=== PATIENT | female | born 1990 | race Hispanic/Latino ===

== ENCOUNTER 2024-03-29 11:53 | Emergency (ER) | payer SELFPAY ==
[2024-03-29] MEDS ORDERED: LORAZEPAM 1 MG TABLET ONE (13:04)
--- NOTE | 2024-03-29 13:11 | RAD REPORT ---
EXAM: Chest Single View HISTORY: CHEST PAIN COMPARISON: None. FINDINGS: LUNGS/PLEURA: The lungs are clear. No pleural effusions or pneumothorax. No pulmonary edema. MEDIASTINUM: The mediastinal silhouette is within normal limits. CARDIAC: The cardiac silhouette is within normal limits. UPPER ABDOMEN: No significant abnormality. BONES: No acute abnormality. LINES/TUBES/OTHER: N/A IMPRESSION: No evidence of acute cardiopulmonary disease.
[2024-03-29 13:24] LABS: Absolute Eosinophils 0.1 K/uL (0-0.5); Absolute Lymphocytes (CBC) 2.5 K/uL (0.7-4.9); Absolute Monocytes 0.3 K/uL (0.1-1.3); Absolute Neutrophil 4.9 K/uL (1.8-8.0); Basophils % 0.5 % (0-1.3); Eosinophils % 1.4 % (0-4.4); Hematocrit 37.1 % (36.0-45.0); Hemoglobin 13.2 g/dL (12.0-15.0); Lymphocytes % 31.9 % (15.3-44.8); MCH 32.2 pg (27.0-35.0); MCHC 35.5 g/dL (32.0-36.0); MCV 90.6 fL (80-100); MPV 8.7 fL (7.6-11.3); Monocytes % 4.4 % (3.3-12.3); Neutrophils % 61.8 % (41.7-73.7); Nucleated Red Blood Cells % 0.1 % (0-0); Platelets 297 thou/uL (152-406); RBC Red Blood Cell Count 4.09 M/uL (3.86-4.86); Red Cell Distribution Width 12.6 % (12.1-15.2)
[2024-03-29 13:42] LABS: Anion Gap 7.9 mEq/L (5.0-15.0); Potassium 3.9 mEq/L (3.5-5.1); Troponin High Sensitivity 6.8 pg/mL (<58.9)
--- NOTE | 2024-03-29 13:50 | ER ---
Nurse's Notes [facility] Name: Inessa Gilmore Age: 34 yrs Sex: Female : 1990 Arrival Date: 03/29/2024 Time: 11:53 Bed 2 Private MD: Diagnosis: Anxiety disorder, unspecified;Chest pain, unspecified Presentation: 03/29 12:31 Chief complaint: Intermittent sharp left sided chest pain, SOB, and anxiety x 2 days. hb Coronavirus screen: At this time, the client does not indicate any symptoms associated with coronavirus-19. Ebola Screen: No symptoms or risks identified at this time. Initial Sepsis Screen: Does the patient meet any 2 criteria? No. Patient's initial sepsis screen is negative. Does the patient have a suspected source of infection? No. Patient's initial sepsis screen is negative. Risk Assessment: Do you want to hurt yourself or someone else? Patient reports no desire to harm self or others. Onset of symptoms was March 28, 2024. 12:31 Method Of Arrival: Ambulatory hb 12:31 Acuity: HECTOR 3 hb Historical: - Allergies: 12:32 No Known Allergies; hb - Home Meds: 12:32 None [Active]; hb - PMHx: 12:32 None; hb - PSHx: 12:32 Appendectomy; section; hb - Immunization history:: Adult Immunizations up to date. - Infectious Disease History:: Denies. - Social history:: Smoking status: Reported history of juuling and/or vaping. Screenin:14 [facility] ED Fall Risk Assessment (Adult) History of falling in the last 3 months, db including since admission No falls in past 3 months (0 pts) Confusion or Disorientation No (0 pts) Intoxicated or Sedated No (0 pts) Impaired Gait No (0 pts) Mobility Assist Device Used No (0 pt) Altered Elimination No (0 pt) Score/Fall Risk Level 0 - 2 = Low Risk Oriented to surroundings, Maintained a safe environment. Abuse screen: Denies threats or abuse. Denies injuries from another. Abuse screen: Denies threats or abuse. Nutritional screening: No deficits noted. Tuberculosis screening: No symptoms or risk factors identified. Assessment: 13:15 Reassessment: Patient appears in no apparent distress at this time. Patient and/or db family updated on plan of care and expected duration. Pain level reassessed. Patient is alert, oriented x 3, equal unlabored respirations, skin warm/dry/pink. General: Appears in no apparent distress. comfortable, Behavior is calm, cooperative. Pain: Complains of pain in chest Pain does not radiate. Pain began gradually. Pain: Pain began 1 day ago. Neuro: Level of Consciousness is awake, alert, obeys commands, Oriented to person, place, time, situation. Cardiovascular: Reports chest pain. Respiratory: Airway is patent Respiratory effort is even, unlabored, Respiratory pattern is regular, symmetrical. 13:37 Reassessment: Patient appears in no apparent distress at this time. Patient and/or db family updated on plan of care and expected duration. Pain level reassessed. Patient is alert, oriented x 3, equal unlabored respirations, skin warm/dry/pink. 14:06 Reassessment: Patient appears in no apparent distress at this time. Patient and/or db family updated on plan of care and expected duration. Pain level reassessed. Patient is alert, oriented x 3, equal unlabored respirations, skin warm/dry/pink. Vital Signs: 12:31 BP 112 / 76; Pulse 86; Resp 16; Temp 97.8; Pulse Ox 100% ; Weight 58.97 kg; Height 5 hb ft. 1 in. ; Pain 0/10; 13:15 BP 100 / 65; Pulse 72; Resp 18; Pulse Ox 99% on R/A; db 13:45 BP 101 / 71; Pulse 72; Resp 16; Pulse Ox 99% ; db 12:31 Body Mass Index 24.56 (58.97 kg, 154.94 cm) hb 12:31 Pain Scale: Adult hb ED Course: 11:55 Patient arrived in ED. mr 12:32 Triage completed. hb 12:33 Arm band placed on. hb 12:33 EKG done, by ED staff. hb 12:34 Ragini Vega FNP-C is PHCP. kb 12:34 Bernard Solano MD is Attending Physician. kb 12:59 Cecily Alarcon, MEDARDO is Primary Nurse. db 13:06 XRAY Chest (1 view) In Process Unspecified. EDMS 13:10 Initial lab(s) drawn, by me, sent to lab. Inserted saline lock: 20 gauge in right db antecubital area, using aseptic technique. Blood collected. Flushed with 10 mL NS. Patient maintains SpO2 saturation greater than 95% on room air. 13:14 Patient has correct armband on for positive identification. Bed in low position. Call db light in reach. Side rails up X 1. Client placed on continuous cardiac and pulse oximetry monitoring. NIBP monitoring applied. neighborhood service center director on. Pulse ox on. NIBP on. Warm blanket given. Pillow given. 14:06 Provided Education on: DISCHARGE AND FOLLOWUP. db 14:06 No provider procedures requiring assistance completed. IV discontinued, intact, db bleeding controlled. Administered Medications: 13:05 Drug: LORazepam PO 1 mg PO once Route: PO; db 14:07 Follow up: Response: No adverse reaction; Anxiety decreased db Medication: 14:06 VIS not applicable for this client. db Outcome: 13:49 Discharge ordered by . cristal 14:06 Discharged to home ambulatory, db 14:06 Condition: stable 14:06 Discharge instructions given to patient, Instructed on discharge instructions, follow up and referral plans. Prescriptions given X 1, 14:07 Patient left the ED. db Signatures: Dispatcher [employer] EDMS Ragini Vega, FLEXIBLE MACHINING SYSTEM MACHINIST-C FLEXIBLE MACHINING SYSTEM MACHINIST-CkYanna Kerr, Reg Reg mr Roz Feliciano, RN RN Cecily Bay, RN RN db
--- NOTE | 2024-03-29 13:50 | EDPHYS ---
Physician Documentation [facility] Name: Inessa Gilmore Age: 34 yrs Sex: Female : 1990 Arrival Date: 03/29/2024 Time: 11:53 Bed 2 Private MD: ED Physician Bernard Solano HPI: 03/29 13:45 This 34 yrs old Female presents to ER via Ambulatory with complaints of kb Anxiety, Chest Pain. 13:45 Pt is a 34 year old female who presents for anxiety and chest pain that started kb yesterday. States she has had anxiety like this in the past, but it has been years. States the anxiety has been making her chest hurt as well. Denies shortness of breath. 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 . Historical: - Allergies: 12:32 No Known Allergies; hb - Home Meds: 12:32 None [Active]; hb - PMHx: 12:32 None; hb - PSHx: 12:32 Appendectomy; section; hb - Immunization history:: Adult Immunizations up to date. - Infectious Disease History:: Denies. - Social history:: Smoking status: Reported history of juuling and/or vaping. ROS: 13:45 Constitutional: As per HPI kb Exam: 13:45 Constitutional: This is a well developed, well nourished patient who is awake, alert, kb and in no acute distress. Head/Face: Normocephalic, atraumatic. ENT: Moist Mucous membranes Cardiovascular: Regular rate Respiratory: Respirations even and unlabored. No increased work of breathing. Talking in full sentences Abdomen/GI: Soft, non-tender. No distention Skin: Warm, dry with normal turgor. Normal color. MS/ Extremity: Pulses equal, no cyanosis. Neurovascular intact. Full, normal range of motion. Neuro: Awake and alert, GCS 15, oriented to person, place, time, and situation. 13:45 ECG was reviewed by the Attending Physician. Vital Signs: 12:31 BP 112 / 76; Pulse 86; Resp 16; Temp 97.8; Pulse Ox 100% ; Weight 58.97 kg; Height 5 hb ft. 1 in. ; Pain 0/10; 13:15 BP 100 / 65; Pulse 72; Resp 18; Pulse Ox 99% on R/A; db 13:45 BP 101 / 71; Pulse 72; Resp 16; Pulse Ox 99% ; db 12:31 Body Mass Index 24.56 (58.97 kg, 154.94 cm) hb 12:31 Pain Scale: Adult hb MDM: 12:34 Medical Screening Exam initiated kb 13:48 Differential diagnosis: acute mi, arrhythmia, anxiety. Data reviewed: vital signs, kb nurses notes. Test considered but Not performed: CT: ct chest considered but perc negative. Scoring Tools PERC Rule for PE Age >/= 50 No HR >/= 100 No O2 Sat Room Air < 95% No Unilateral leg swelling No Hemoptysis No Recent surgery or trauma </= 4 wks ago requiring treatment with general anesthesia No (0 pt) Prior PE or DVT No Hormone use (Oral contraceptives, hormone replacement or estrogenic hormones use in males or female patients No. Counseling: I had a detailed discussion with the patient and/or guardian regarding the historical points, exam findings, and any diagnostic results supporting the discharge/admit diagnosis, lab results, radiology results, the need for outpatient follow up, a family practitioner, to return to the emergency department if symptoms worsen or persist or if there are any questions or concerns that arise at home. 03/29 12:44 Order name: Basic Metabolic Panel; Complete Time: 13:45 kb 03/29 12:44 Order name: CBC with Diff; Complete Time: 13:29 kb 03/29 12:44 Order name: Troponin HS; Complete Time: 13:45 kb 03/29 12:44 Order name: XRAY Chest (1 view); Complete Time: 13:16 kb 03/29 12:44 Order name: EKG; Complete Time: 12:45 kb 03/29 12:44 Order name: Cardiac monitoring; Complete Time: 13:14 kb 03/29 12:44 Order name: EKG - Nurse/Tech; Complete Time: 13:14 kb 03/29 12:44 Order name: IV Saline Lock; Complete Time: 13:14 kb 03/29 12:44 Order name: Labs collected and sent; Complete Time: 13:14 kb 03/29 12:44 Order name: O2 Per Protocol; Complete Time: 13:14 kb 03/29 12:44 Order name: O2 Sat Monitoring; Complete Time: 13:14 kb EC:45 Rate is 72 beats/min. Rhythm is regular. QRS [place] is Normal. [place] interval is normal at kb 118 msec. QRS interval is normal at 76 msec. QT interval is normal at 409 msec. Administered Medications: 13:05 Drug: LORazepam PO 1 mg PO once Route: PO; db 14:07 Follow up: Response: No adverse reaction; Anxiety decreased db Disposition: 16:37 Co-signature as Attending Physician, Bernard Solano MD I reviewed the patient's care rt provided by the Advanced Practice Provider and agree with the diagnosis and treatment plan. Disposition Summary: 03/29/24 13:49 Discharge Ordered Notes: Location: Home kb Condition: Stable kb Diagnosis - Anxiety disorder, unspecified kb - Chest pain, unspecified kb Followup: kb - With: Emergency Department - When: As needed - Reason: Worsening of condition Followup: kb - With: Private Physician - When: 2 - 3 days - Reason: Recheck today's complaints, Continuance of care, Re-evaluation by your physician Discharge Instructions: - Discharge Summary Sheet kb - Nonspecific Chest Pain, Adult, [id number] kb - Panic Attack, [id number] kb Forms: - Medication Reconciliation Form kb - Antibiotic Education kb - Prescription Opioid Use kb - Patient Portal Instructions kb - Leadership Thank You Letter kb Prescriptions: - Hydroxyzine HCl 25 mg Oral tablet - take 1 tablet ORAL route every 8 hours As needed; 12 tablet; Refills: 0, kb Product Selection Permitted Signatures: Dispatcher [employer] Ragini Parra, TUNDE ANDREA-Roz Noriega RN RN hb Benton, Danielle, RN RN Bernard Kirby MD MD rt
[2024-03-29 16:03] VITALS: TEMP 97.8
[2024-03-29 16:08] VITALS: O2SAT 99
[2024-03-29 16:14] VITALS: BP 101/71
== END 2024-03-29 14:07 | disposition home or self-care (01) ==
LOC: ER 11:53
DX: F41.9 Anxiety disorder, unspecified (principal)
CPT/HCPCS: 36415; 71045; 80048; 84484; 85025; 99284